=== PATIENT | female | born 1970 | race Caucasian/White ===

== ENCOUNTER 2017-07-03 11:19 | Emergency (ER) | payer OTHER ==
[~2017-07-03] VITALS: Ht 165.1 cm; Wt 118.5 kg
[2017-07-03 11:24] VITALS: TEMP 36.9; Ht 165.1 cm; Wt 118.5 kg
--- NOTE | 2017-07-03 12:58 | DIAGNOSTIC IMAGING REPORT ---
L WRIST MIN 3 VIEWS ROUTINE CLINICAL HISTORY: same trauma. Pain. COMPARISON: None. DISCUSSION: Evidence for arthroplasty of the distal radius and associated carpal bones. Linear screws at the base of the second third and fourth metacarpals with surrounding lucency indicative of loosening. No evidence for well-defined fracture. Moderate generalized soft tissue edema. Old avulsion ulnar styloid IMPRESSION: Considerable postoperative and degenerative change. Evidence for loosening of the patient's carpal bone and distal radial prosthetic. No acute bony abnormality on a posttraumatic basis. The above report was generated using voice recognition software. It may contain grammatical, syntax or spelling errors. Electronically signed by: Ayad Narayanan M.D. 07/03/2017 12:57 PM Dictated Date/Time: 07/03/2017 12:48 PM
--- NOTE | 2017-07-03 12:59 | DIAGNOSTIC IMAGING REPORT ---
L HAND MIN 3 VIEWS ROUTINE CLINICAL HISTORY: fall last pm; L wrist and hand pain trauma. Pain. COMPARISON: None. DISCUSSION: Evidence for arthroplasties involving the distal radius, components of the first and second carpal bone row, as well as screw and/or pin fixation devices involving the bases of the second third and fourth metacarpals. Evidence for loosening surrounding these pins. No well-defined evidence for an acute posttraumatic abnormality. No specific evidence for fracture. There is no evidence for soft tissue swelling. IMPRESSION: Degenerative and postoperative change. No acute bony antibody. The above report was generated using voice recognition software. It may contain grammatical, syntax or spelling errors. Electronically signed by: Ayad Narayanan M.D. 07/03/2017 12:58 PM Dictated Date/Time: 07/03/2017 12:57 PM
[2017-07-03] MEDS ORDERED: HYDR-5688 PO (13:25)
[2017-07-03 13:35] VITALS: BP 158/99; PULSE 87; O2SAT 96
--- NOTE | 2017-07-04 16:17 | EMERGENCY ROOM VISIT NOTE ---
ED Visit Note First contact with patient: 12:04 Chief Complaint: Left wrist pain. History of Present Illness: Ms. Samuel is a 47-year-old white female who ambulates into the ED complaining of left wrist pain. 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 Patient reports last night approximately 10 PM, approximately 12 hours ago, she fell while carrying stuff up the stairs. She reports she landed on her left hand but does not know the position of the hand or the wrist at the time of the fall. Since the fall she has been having severe left wrist pain predominantly over the area of the hyper thenar eminence and extending into the medial wrist. She describes her pain as a combination of sharp and throbbing. She rates her discomfort 6/10. Her pain is nonradiating into the forearm or the rest of the hand. She has not identified any alleviating factors related to the pain. She reports she attempted to use [id number] medications without relief of her discomfort. Associated with her pain she reports she has mild tingling in the fingers but no numbness or weakness. Additionally she reports no shoulder pain, elbow pain, proximal forearm pain. Review of Systems: As noted above in history of present illness. Past Medical History: As previously noted and hypertension, status post cholecystectomy, and tubal ligation. Current Medications: Patient denies. Allergies to Medications: Patient denies. Social History: Patient is currently employed; she feels safe in her home environment; she admits to tobacco use and denies alcohol use. Physical Examination: Vital Signs: Date Time Temp Pulse Resp B/P (MAP) Pulse Ox O2 Delivery O2 Flow Rate FiO2 07/03/17 13:35 87 18 158/99 96 07/03/17 11:24 36.9 81 18 163/105 96 Room Air GENERAL: 47-year-old female in mild distress due to pain, nontoxic-appearing, afebrile and hemodynamically stable. NEUROLOGICAL: Awake, alert and oriented to person, place and time. Answering questions appropriately and following commands. SKIN: Warm, dry and pink. No soft tissue trauma noted. LEFT UPPER EXTREMITY: No gross bony deformity. No tenderness in the shoulder, upper arm, elbow, proximal forearm. Mild tenderness over the distal ulna with mild swelling but no bony deformity or crepitus. Mild tenderness about the wrist once again with mild swelling but no bony deformity or crepitus. No tenderness in the anatomical snuffbox. Moderate tenderness in the hand predominantly in the area of the second through fourth metacarpals. There is also moderate swelling in this area but there is no bony deformity or crepitus. Mild tenderness over the MCP joint of the thumb without bony deformity or crepitus. No tenderness over the other MCP, PIP or DIP joints. No tenderness over the fingers. She has full range of motion in the MCP, PIP and DIP joint. The fingers were warm and pink and capillary refill is brisk. Mild decreased range of motion in the wrist due to pain but good strength. ED Course: Patient is assessed as noted above per Patient's medication list was reviewed. Patient was offered pain medication and refused; she did except and ice pack. Left Hand X-Rays: Were red by myself and read by the radiologist showing degenerative and postoperative changes but no acute bony deformities. Evidence of loosening surrounding her surgical implant. Left Wrist X-Rays: Were read by myself and the radiologist showing incidental verbal postoperative and degenerative changes. Evidence for loosening of the patient's carpal and distal radial prosthetic but no acute bony abnormalities. Patient was placed in a thumb spica splint. Patient was educated about today's findings and instructed on her treatment plan ; she verbalized understanding and agreement with this plan. Clinical Impression: Left wrist pain. Left thumb pain. Status post fall. Disposition: Patient discharged home in stable condition; prior to departure she was reassessed and subjectively reported she is feeling slightly better and rated her discomfort 5/10. Plan: Comfort measures were discussed with the patient including rest, splint use, ice and a sliding pain medication scale of ibuprofen, see acetaminophen and [place]; her name was checked in the state database and no red flags were noted. Patient was given appropriate narcotic precautions. Patient was encouraged to follow-up with [facility] for definitive care and treatment. Patient was encouraged return ED for worsening/uncontrolled pain, uncontrolled swelling, hand/finger weakness/numbness/tingling or any new/concerning symptoms.
== END 2017-07-03 13:33 | disposition home or self-care (01) ==
LOC: C.EDB 11:21 → C.EDD 13:33
DX: M25.532 Pain in left wrist (principal); M25.542 Pain in joints of left hand; I10 Essential (primary) hypertension; F17.200 Nicotine dependence, unspecified, uncomplicated; Z90.49 Acquired absence of other specified parts of digestive tract; Z98.51 Tubal ligation status

== ENCOUNTER 2017-08-22 10:38 | Emergency (ER) | payer OTHER ==
[~2017-08-22] VITALS: Ht 165.1 cm; Wt 119.0 kg
[~2017-08-22 10:38] MED LIST: HYDR-5688 PO
[2017-08-22 10:46] VITALS: TEMP 36.9; Ht 165.1 cm; Wt 119.0 kg
[2017-08-22 11:44] VITALS: O2SAT 96
[2017-08-22 11:48] LABS: BASO % 0.2 %; BASO ABS # 0.02 K/uL (0-0.2); EOS % 1.2 %; HEMATOCRIT 39.4 % (37-47); HEMOGLOBIN 13.4 g/dL (12.0-16.0); IG# 0.02 K/uL (0.00-0.02); LYMPH % 25.4 %; LYMPH ABS # 2.16 K/uL (1.2-3.4); MEAN CELL VOLUME 87.9 fL (80-100); MEAN CORPUSCULAR HEMOGLOBIN 29.9 pg (25-34); MEAN PLATELET VOLUME 9.7 fL (7.4-10.4); MONO % 6.7 %; MONO ABS # 0.57 K/uL (0.11-0.59); NEUT % 66.3 %; NEUT ABS # 5.65 K/uL (1.4-6.5); PLATELET COUNT 330 K/uL (130-400); RED CELL DISTRIBUTION WIDTH SD 48.2 fL (36.4-46.3); WHITE BLOOD COUNT 8.52 K/uL (4.8-10.8)
[2017-08-22 11:57] LABS: ALBUMIN 3.7 gm/dl (3.4-5.0); ALT/SGPT 24 U/L (12-78); AST/SGOT 12 U/L (15-37); BLOOD UREA NITROGEN 12 mg/dl (7-18); CALCIUM 8.9 mg/dl (8.5-10.1); CARBON DIOXIDE 26 mmol/L (21-32); CREATININE 0.79 mg/dl (0.60-1.20); GLUCOSE 110 mg/dl (70-99); POTASSIUM 3.6 mmol/L (3.5-5.1); SODIUM 138 mmol/L (136-145)
[2017-08-22 12:02] LABS: ALKALINE PHOSPHATASE 58 U/L (45-117); CKMB 0.9 ng/ml (0.5-3.6); TOTAL PROTEIN 7.3 gm/dl (6.4-8.2)
[2017-08-22] MEDS ORDERED: NAPR1TAB9 PO (12:17)
--- NOTE | 2017-08-22 12:18 | DIAGNOSTIC IMAGING REPORT ---
CHEST ONE VIEW PORTABLE CLINICAL HISTORY: L leg edema, dyspnea, chest pain pain. Edema. COMPARISON STUDY: No previous studies for comparison. FINDINGS: The bones soft tissues and hemidiaphragms are normal. The cardiomediastinal silhouette is normal. The lungs are clear. The pulmonary vasculature is normal. IMPRESSION: Negative chest. The above report was generated using voice recognition software. It may contain grammatical, syntax or spelling errors. Electronically signed by: Ayad Narayanan M.D. 08/22/2017 12:16 PM Dictated Date/Time: 08/22/2017 12:16 PM
[2017-08-22 12:24] LABS: INR 0.9 (0.9-1.1)
--- NOTE | 2017-08-22 13:05 | EMERGENCY ROOM VISIT NOTE ---
History First contact with patient: 11:31 Chief Complaint: CHEST PAIN Stated Complaint: CHEST PAIN AND FLUID IN LEFT LEG Nursing Triage Summary: shortness of breath, chest pain started this morning. "I noticed my lower legs look bigger than normal to me." History of Present Illness The patient is a 47 year old female who presents to the Emergency Room via private vehicle with complaints of "chest pain and fluid left leg". The patient states that she has had in her mid shortness of breath over the past few days, intermittent emesis of the chest pain better at rest and not with exertion. She states that she has never had this before. She does smoke but denies any long travel, recent surgeries, hormone use. There has been no fever or chills. She denies any medical problems. She notes a strong family history of heart ailments. Review of Systems A complete 10-point Review of Systems was discussed with the patient, with pertinent positives and negatives listed in the History of Present Illness. All remaining Review of Systems questions can be considered negative unless otherwise specified. Past Medical/Surgical History No pertinent Social History Smoking Status: Current Every Day Smoker Current/Historical Medications Scheduled Naproxen (Aleve), 440 MG PO UD Physical Exam Vital Signs Date Time Temp Pulse Resp B/P (MAP) Pulse Ox O2 Delivery O2 Flow Rate FiO2 08/22/17 13:37 54 16 148/82 97 Room Air 08/22/17 12:20 65 18 145/78 96 Room Air 08/22/17 12:02 56 08/22/17 11:45 65 20 157/93 96 Room Air 08/22/17 11:44 96 Room Air 08/22/17 10:46 36.9 64 20 141/84 95 Room Air Physical Exam VITAL SIGNS - Vital signs and nursing notes were reviewed. Stable. GENERAL - 47-year-old female appearing her stated age who is in no acute distress. Communicates well with provider and answers questions appropriately. SKIN - Without rashes. HEAD - NC/AT. EYES - Sclera anicteric. EARS - No deformities of external structures noted on gross examination bilaterally. NOSE - Midline and without cyanosis. No epistaxis or purulent drainage noted. MOUTH/OROPHARYNX - Without perioral cyanosis. NECK - Neck with FROM. No nuchal rigidity. LUNGS - Chest wall symmetric without accessory muscle use, intercostals retractions, or central cyanosis. Normal vesicular breath sounds CTA B/L. No wheezes, rales, or rhonchi appreciated. CARDIAC - RRR with S1/S2. No murmur, rubs, or gallops appreciated. ABDOMEN - Abdominal contour normal without pulsations or visible masses. BS normoactive all four quadrants. No tenderness, palpable masses, hepatosplenomegaly, or ascites noted. Medical Decision & Procedures ER Provider Diagnostic Interpretation: L VENOUS DOPP LOWER EXT UNILAT HISTORY: 47 years-old Female L leg edema, dyspnea, chest pain acute left leg edema COMPARISON: None available TECHNIQUE: Multiple real-time sonographic images of the left lower extremity deep venous structures were obtained assessing grayscale appearance, color and spectral flow FINDINGS: There is normal flow, phasicity, compressibility and augmentation of the left lower extremity deep venous structures. IMPRESSION: No sonographic evidence of deep venous thrombosis. The above report was generated using voice recognition software. It may contain grammatical, syntax or spelling errors. Electronically signed by: Tevin Lackey M.D. 08/22/2017 1:02 PM Dictated Date/Time: 08/22/2017 1:01 PM CHEST ONE VIEW PORTABLE CLINICAL HISTORY: L leg edema, dyspnea, chest pain pain. Edema. COMPARISON STUDY: No previous studies for comparison. FINDINGS: The bones soft tissues and hemidiaphragms are normal. The cardiomediastinal silhouette is normal. The lungs are clear. The pulmonary vasculature is normal. IMPRESSION: Negative chest. The above report was generated using voice recognition software. It may contain grammatical, syntax or spelling errors. Electronically signed by: Ayad Narayanan M.D. 08/22/2017 12:16 PM Dictated Date/Time: 08/22/2017 12:16 PM Laboratory Results 08/22/17 11:03 Red Blood Count 4.48, Mean Corpuscular Volume 87.9, Mean Corpuscular Hemoglobin 29.9, Mean Corpuscular Hemoglobin Concent 34.0, Mean Platelet Volume 9.7, Neutrophils (%) (Auto) 66.3, Lymphocytes (%) (Auto) 25.4, Monocytes (%) (Auto) 6.7, Eosinophils (%) (Auto) 1.2, Basophils (%) (Auto) 0.2, Neutrophils # (Auto) 5.65, Lymphocytes # (Auto) 2.16, Monocytes # (Auto) 0.57, Eosinophils # (Auto) 0.10, Basophils # (Auto) 0.02 08/22/17 11:03 Test 08/22/17 11:03 08/22/17 11:39 White Blood Count 8.52 K/uL (4.8-10.8) Red Blood Count 4.48 M/uL (4.2-5.4) Hemoglobin 13.4 g/dL (12.0-16.0) Hematocrit 39.4 % (37-47) Mean Corpuscular Volume 87.9 fL (80-100) Mean Corpuscular Hemoglobin 29.9 pg (25-34) Mean Corpuscular Hemoglobin Concent 34.0 g/dl (32-36) Platelet Count 330 K/uL (130-400) Mean Platelet Volume 9.7 fL (7.4-10.4) Neutrophils (%) (Auto) 66.3 % Lymphocytes (%) (Auto) 25.4 % Monocytes (%) (Auto) 6.7 % Eosinophils (%) (Auto) 1.2 % Basophils (%) (Auto) 0.2 % Neutrophils # (Auto) 5.65 K/uL (1.4-6.5) Lymphocytes # (Auto) 2.16 K/uL (1.2-3.4) Monocytes # (Auto) 0.57 K/uL (0.11-0.59) Eosinophils # (Auto) 0.10 K/uL (0-0.5) Basophils # (Auto) 0.02 K/uL (0-0.2) RDW Standard Deviation 48.2 fL (36.4-46.3) RDW Coefficient of Variation 15.0 % (11.5-14.5) Immature Granulocyte % (Auto) 0.2 % Immature Granulocyte # (Auto) 0.02 K/uL (0.00-0.02) Prothrombin Time 9.7 SECONDS (9.0-12.0) Prothromb Time International Ratio 0.9 (0.9-1.1) Activated Partial Thromboplast Time 25.0 SECONDS (21.0-31.0) Partial Thromboplastin Ratio 1.0 D-Dimer 400 ug/L FEU (0-500) Anion Gap 8.0 mmol/L (3-11) Est Creatinine Clear Calc Drug Dose 111.2 ml/min Estimated GFR () 101.9 Estimated GFR (Non- 87.9 BUN/Creatinine Ratio 15.6 (10-20) Calcium Level 8.9 mg/dl (8.5-10.1) Magnesium Level 2.0 mg/dl (1.8-2.4) Total Bilirubin 0.5 mg/dl (0.2-1) Aspartate Amino Transf (AST/SGOT) 12 U/L (15-37) Alanine Aminotransferase (ALT/SGPT) 24 U/L (12-78) Alkaline Phosphatase 58 U/L (45-117) Total Creatine Kinase 51 U/L (26-192) Creatine Kinase MB 0.9 ng/ml (0.5-3.6) Creatine Kinase MB Ratio 1.8 (0-3.0) Troponin I < 0.015 ng/ml (0-0.045) Pro-B-Type Natriuretic Peptide 75 pg/ml (0-450) Total Protein 7.3 gm/dl (6.4-8.2) Albumin 3.7 gm/dl (3.4-5.0) Globulin 3.6 gm/dl (2.5-4.0) Albumin/Globulin Ratio 1.0 (0.9-2) Urine Color YELLOW Urine Appearance CLOUDY (CLEAR) Urine pH 8.5 (4.5-7.5) Urine Specific Dania 1.018 (1.000-1.030) Urine Protein NEG (NEG) Urine Glucose (UA) NEG (NEG) Urine Ketones NEG (NEG) Urine Occult Blood NEG (NEG) Urine Nitrite NEG (NEG) Urine Bilirubin NEG (NEG) Urine Urobilinogen NEG (NEG) Urine Leukocyte Esterase TRACE (NEG) Urine WBC (Auto) 1-5 /hpf (0-5) Urine RBC (Auto) 0-4 /hpf (0-4) Urine Hyaline Casts (Auto) 1-5 /lpf (0-5) Urine Epithelial Cells (Auto) >30 /lpf (0-5) Urine Bacteria (Auto) NEG (NEG) Urine Test NEG (NEG) Medical Decision Patient was seen and evaluated as above. She presents to us today with intermittent chest pain that is not with exertion and fluid in her left leg. She also notes her left leg is swollen. She is well on exam. Vital signs are stable. She is not tachycardic and is saturating on room air at 95%. Bedside EKG reveals normal sinus rhythm, there is a nonspecific ST abnormality noted but no evidence of CO on my interpretation. Patient's troponin was negative. Chest x-ray normal. CBC reveals no leukocytosis or anemia. coags are normal. d-dimer 400. metabolic panel reveals no evidence of kidney or liver failure. patient's bnp normal at 75. troponin negative. urine reveals negative test as well as trace leukocytes and epithelial cells. chest x-ray and left lower leg dvt study are negative. i suspect either viral illness, or perhaps venous insufficiency in the left lower extremity. i do not suspect emergent cause of this time but do recommend prompt follow-up with her family doctor or return with worsening. case was discussed with the attending physician. she was educated upon management, educated upon worrisome symptoms in which to return, had questions answered prior to discharge, and was discharged home in good condition. In evaluation treatment this patient the following differential diagnoses were entertained: CO, PE, peritonitis, costs enteritis, DVT, among others. Impression Primary Impression: Chest wall pain Additional Impression: Left leg swelling Departure Information Dispostion Home / Self-Care Condition GOOD Referrals No Doctor, Assigned (PCP) Patient Instructions My [facility] Additional Instructions You have been treated in the Emergency Department your chest Pain and leg swelling. Laboratory results and imaging studies have ruled out any emergent causes for your chest pain which would warrant admission or surgery. For pain control, you can use the following [id number] medicines (if >12 yo): - Regular strength (325mg/tab) Tylenol (acetaminophen) 2 tabs every 4-6 hours as needed. Do not exceed 12 tablets in a 24 hour period. Avoid taking more than 3 grams (3000 mg) of Tylenol per day. This includes any other sources of acetaminophen you may take on a regular basis. - Regular strength (200 mg/tab) Advil (ibuprofen) 1-2 tabs every 4-6 hours as needed. Do not exceed a dose of 3200 mg per day. Drink plenty of water and stay well hydrated. As with any trip to the Emergency Department, you should follow-up with your Primary Care Provider from today's visit. Return to the emergency department if your symptoms persist despite treatment plan outlined above or if the following symptoms occur: increased fevers, chest pain with walking or exertion, chills, worsening nausea/vomiting, blood in your stool or urine. Problem Qualifiers
[2017-08-22 13:37] VITALS: BP 148/82; PULSE 54; O2SAT 97
== END 2017-08-22 14:00 | disposition home or self-care (01) ==
LOC: C.EDB 10:40 → C.EDC 14:00
DX: R07.89 Other chest pain (principal); R60.0 Localized edema; R94.31 Abnormal electrocardiogram [ECG] [EKG]; F17.200 Nicotine dependence, unspecified, uncomplicated

== ENCOUNTER 2018-02-20 09:28 | Emergency (ER) | payer OTHER ==
[~2018-02-20] VITALS: Ht 165.1 cm; Wt 115.3 kg
[~2018-02-20 09:28] MED LIST changes: -HYDR-5688 PO; +NAPR1TAB9 PO
[2018-02-20 09:31] VITALS: TEMP 36.6; Ht 165.1 cm; Wt 115.3 kg
[2018-02-20] MEDS ORDERED: IBUPROFEN 600 MG TAB PO STA (09:56)
--- NOTE | 2018-02-20 10:31 | DIAGNOSTIC IMAGING REPORT ---
LEFT WRIST 4 VIEWS HISTORY: Left Wrist pain COMPARISON: Left wrist 07/03/2017. FINDINGS: There is no fracture or dislocation. Diffuse soft tissue swelling which has progressed. A left wrist arthroplasty is again noted. The proximal carpal row has been partially resected. The hardware appears intact. There is progressive periprosthetic lucency. This is most pronounced at the base of the third metacarpal with the lucency measuring 3.1 mm. There is also 3 mm of periprosthetic lucency at the distal radius. IMPRESSION: 1. No fracture or dislocation within the left wrist. 2. Left wrist arthroplasty. There is progressive periprosthetic lucency consistent with loosening. 3. Diffuse soft tissue swelling. Electronically signed by: Rodney Mauricio M.D. 02/20/2018 10:30 AM Dictated Date/Time: 02/20/2018 10:27 AM
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
[2018-02-20 11:19] VITALS: BP 128/76; PULSE 90; O2SAT 98
== END 2018-02-20 11:20 | disposition home or self-care (01) ==
LOC: C.EDB 09:31
DX: M25.532 Pain in left wrist (principal); W22.8XXA Striking against or struck by other objects, initial encounter; Y92.013 Bedroom of single-family (private) house as the place of occurrence of the external cause

== ENCOUNTER 2020-11-27 18:02 | Inpatient (IN) ==
[2020-11-27] MEDS ORDERED: methylPREDNISolone 125 MG/2 ML VIAL IV STA (20:04)
[2020-11-27] MEDS ORDERED: ALBUT/IPRATROP 3MG/0.5MG NEB 3 ML VIAL NEB ONE (20:04)
[2020-11-27 20:21] LABS: Basophils # (auto) 0.02 K/uL (0-0.2); Basophils % (auto) 0.1 %; Eosinophils # (auto) 0.14 K/uL (0-0.5); Hemoglobin 13.8 g/dL (12.0-16.0); Immature Granulocytes # (auto) 0.04 K/uL (0.00-0.02); Immature Granulocytes % (auto) 0.3 %; Lymphocytes # (auto) 1.43 K/uL (1.2-3.4); Lymphocytes % (auto) 10.3 %; Mean Corpuscular Hemoglobin 29.2 pg (25-34); Mean Corpuscular Hgb Conc 33.7 g/dL (32-36); Mean Corpuscular Volume 86.7 fL (80-100); Mean Platelet Volume 9.8 fL (7.4-10.4); Monocytes # (auto) 1.03 K/uL (0.11-0.59); Monocytes % (auto) 7.4 %; Neutrophils # (auto) 11.21 K/uL (1.4-6.5); Neutrophils % (auto) 80.9 %; Platelet Count 330 K/uL (130-400); RDW Coefficient of Variation 14.7 % (11.5-14.5); RDW Standard Deviation 46.6 fL (36.4-46.3); Red Blood Count 4.73 M/uL (4.2-5.4); White Blood Count 13.87 K/uL (4.8-10.8)
[2020-11-27 20:43] LABS: Base Excess VBG 7.8 mEq/L; Oxygen Saturation VBG 71.9 %; pH VBG 7.51 (7.36-7.41)
[2020-11-27 20:45] LABS: Alanine Aminotransferase 22 U/L (12-78); Albumin Level 3.7 gm/dl (3.4-5.0); Aspartate Aminotransferase 9 U/L (15-37); BUN Creatinine Ratio 10.3 (10-20); Blood Urea Nitrogen 6 mg/dl (7-18); Calcium 8.8 mg/dl (8.5-10.1); Carbon Dioxide 25 mmol/L (21-32); Chloride 110 mmol/L (98-107); Creatinine Clr Calc Pharmacy 137.8 ml/min; Est GFR (African American) 122.1 ml/min; Est GFR (Non-African American) 105.4 ml/min; Glucose 98 mg/dl (70-99); Magnesium 2.5 mg/dl (1.8-2.4); Potassium 3.9 mmol/L (3.5-5.1); Sodium 141 mmol/L (136-145)
[2020-11-27 20:49] LABS: INR 0.9 (0.9-1.1); Partial Thromboplastin Ratio 0.9; Partial Thromboplastin Time 22.5 Seconds (21.0-31.0); Prothrombin Time 9.6 Seconds (9.0-12.0)
[2020-11-27 20:50] LABS: Albumin Globulin Ratio 1.1 (0.9-2); Alkaline Phosphatase 60 U/L (45-117); Bilirubin,Total 0.6 mg/dl (0.2-1); Globulin 3.5 gm/dl (2.5-4.0); NT Pro B Type Natriuretic Pept 319 pg/ml (0-900); Total Protein 7.2 gm/dl (6.4-8.2); Troponin I < 0.015 ng/ml (0-0.045)
[2020-11-27] MEDS ORDERED: ALBUTEROL 0.083% NEBU SOLN 3 ML VIAL NEB STA (21:37)
[2020-11-27] MEDS ORDERED: ALBUT/IPRATROP 3MG/0.5MG NEB 3 ML VIAL NEB STA (21:37)
[2020-11-27] MEDS ORDERED: AZITHROMYCIN 250 MG TAB PO ONE (21:37)
--- NOTE | 2020-11-27 21:44 | Emergency Department Note ---
History of Present Illness General Chief Complaint: Shortness of Breath/Dyspnea Stated Complaint: SHORTNESS OF BREATH, SWOLLEN LEG Time Seen by Provider: 11/27/20 19:57 History of Present Illness Provider Complaint: shortness of breath Onset (ago): day(s) (2) Severity: severe Maximum Pain Intensity: 0 Current Pain Intensity: 0 Exacerbated By: + exertion, + coughing, + talking and + allergies Context: + medication noncompliance (Albuterol inhaler is ) Known history of: COPD Associated symptoms: + wheezing; no chest pain, no pain with inspiration, no cough, no orthopnea, no palpitations, no hemoptysis, no diaphoresis, no syncope, no abdominal pain, no rash and no chest congestion Home Medications Medication Instructions Recorded Confirmed Type albuterol sulfate [ProAir HFA] 2 puff INHALATION Q6H PRN 08/07/18 11/27/20 Histo ry Allergies Allergy/AdvReac Type Severity Reaction Status Date / Time No Known Allergies Allergy Verified 11/27/20 19:52 Past Med/Surg History Medical History COPD (chronic obstructive pulmonary disease) Murmur Surgical History History of cholecystectomy Social History Smoking Status: Current every day smoker Tobacco Type: Cigarettes Hx Substance Use: Yes Preferred Language: Czech Feels Safe at Home: Yes Review of Systems A total of 10 systems reviewed and were otherwise negative Physical Exam Vital Signs: Vital Signs - 24 hr 11/27/20 18:20 11/27/20 20:03 11/27/20 20:28 Temperature 36.6 C 37.0 C Temperature Source Temporal Artery Sc an Oral Pulse Rate 80 Pulse Rate [Right Finger] 71 Pulse Rate from Sp O2 Sensor Respiratory Rate 22 28 H 18 Respiratory Effort / Characteristics Labored Non-Labored Sponta neous Blood Pressure 186/77 H Blood Pressure Nayana n 113 Pulse Oximetry 95 93 93 Oxygen Delivery Me thod Room Air Room Air Oxygen Flow Rate 93 Sepsis Recent Feve r Within 48 Hours No Sepsis New/Unexpla ined Change in Men marah Status No Sepsis Action Take n by Nursing No Action Required 11/27/20 21:01 Temperature Temperature Source Pulse Rate Pulse Rate [Right Finger] Pulse Rate from Sp O2 Sensor 81 Respiratory Rate Respiratory Effort / Characteristics Blood Pressure 145/83 H Blood Pressure Nayana n 103 Pulse Oximetry 100 Oxygen Delivery Me thod Oxygen Flow Rate Sepsis Recent Feve r Within 48 Hours Sepsis New/Unexpla ined Change in Men marah Status Sepsis Action Take n by Nursing Physical Exam: Physical Exam HENT: Exam performed. -Head: Normocephalic and atraumatic. -Right Ear: External ear normal. No mastoid tenderness. -Left Ear: External ear normal. No mastoid tenderness. -Mouth/Throat: The oropharynx is clear and moist. No trismus in the jaw. No dental abscesses or uvula swelling. No oropharyngeal exudate or tonsillar abscesses. EYES: Conjunctivae and EOM are normal. Pupils are equal, round, and reactive to light. Right eye exhibits no discharge. Left eye exhibits no discharge. No scleral icterus. NECK: Normal range of motion. Neck supple. No JVD present. No spinous process tenderness present. No carotid bruit present. No rigidity. No tracheal deviation and normal range of motion present. No Brudzinski's sign and no Kernig's sign noted. CV: Normal rate, regular rhythm, normal heart sounds and intact distal pulses. There is no peripheral edema. Palpable radial pulses bue. PULM/CHEST: Tachypneic. Diffuse bilateral expiratory wheezes. ABD: The abdomen is soft and obese. Bowel sounds are normal. She has no distension. No mass is present. There is no tenderness. There is no rebound, no guarding, no Fernandez's sign and no tenderness at McBurney's point. Rovsig negative MUSC/SKEL: Normal range of motion. There is no peripheral edema, tenderness or deformity. LYMPH: No cervical adenopathy. NEURO: She is alert and oriented to person, place, and time. She has normal strength. No cranial nerve deficit or sensory deficit. Coordination and gait normal. GCS eye subscore is 4. GCS verbal subscore is 5. GCS motor subscore is 6. Cerebellar tests wnl. SKIN: Skin is warm and dry. She is not diaphoretic. PSYCH: She has a normal mood and affect. Behavior is normal. Judgment and thought content normal. Course Course 1956: The patient was evaluated in room C9. A complete history and physical exam was performed Cardiac monitoring: An order was placed for continuous cardiac monitoring. The monitor shows a rate of 80 with sinus rhythm Patient will be given hour-long DuoNeb treatment and steroids. Will reassess then. Patient is not vaccinated gets COVID-19 we will check Covid swab. 2141: Vital signs stable. Labs show leukocytosis of 13.8, thought to be reactive. Chest x-ray negative. proBNP within normal limits. Status post 1 hour DuoNeb treatment the patient states she feels better. Patient went to the restroom and on returning to the [place] the patient states she felt extremely short of breath with small amount of walking. On repeat lung station after she went to the bathroom the patient is still having expiratory wheezes that are diffuse. Patient states she is still an active smoker. Smoking cessation discussed with the patient. Patient states she does not have a PCP in the area. Patient will be admitted to the [facility] service for COPD exacerbation. Patient will be given additional breathing treatments and started on azithromycin for COPD exacerbation. Administered Medications Discontinued Medications Albuterol (Albut/Ipratrop 3mg/0.5mg Neb 3 Ml Vial) 12 ml NEB ONE ONE Stop: 11/27/20 20:05 Last Admin: 11/27/20 20:28 Dose: 12 ml Documented by: [id number] Methylprednisolone (Methylprednisolone 125 Mg/2 Ml Vial) 125 mg IV NOW STA Stop: 11/27/20 20:05 Last Admin: 11/27/20 20:19 Dose: 125 mg Documented by: [id number] Medical Decision Making Laboratory Data Result diagrams: 11/27/20 20:00 11/27/20 20:00 Lab Results 11/27/20 11/27/20 11/27/20 Range/Units 20:00 20:00 20:17 WBC 13.87 H (4.8-10.8) K/uL RBC 4.73 (4.2-5.4) M/uL Hgb 13.8 (12.0-16.0) g/dL Hct 41.0 (37-47) % MCV 86.7 (80-100) fL MCH 29.2 (25-34) pg MCHC 33.7 (32-36) g/dL RDW Std Deviation 46.6 H (36.4-46.3) fL RDW Coeff of James 14.7 H (11.5-14.5) % Plt Count 330 (130-400) K/uL MPV 9.8 (7.4-10.4) fL Immature Gran % (Auto) 0.3 % Neut % (Auto) 80.9 % Lymph % (Auto) 10.3 % [place] % (Auto) 7.4 % Eos % (Auto) 1.0 % Baso % (Auto) 0.1 % Neut # (Auto) 11.21 H (1.4-6.5) K/uL Lymph # (Auto) 1.43 (1.2-3.4) K/uL [place] # (Auto) 1.03 H (0.11-0.59) K/uL Eos # (Auto) 0.14 (0-0.5) K/uL Baso # (Auto) 0.02 (0-0.2) K/uL Immature Gran # (Auto) 0.04 H (0.00-0.02) K/uL PT (9.0-12.0) Seconds INR (0.9-1.1) APTT (21.0-31.0) Seconds PTT Ratio VBG pH (7.36-7.41) VBG pCO2 (38-50) mmHg VBG pO2 mmHg VBG HCO3 mmol/L VBG O2 Saturation % VBG Base Excess mEq/L Barometric Pressure mm/Hg Sodium 141 (136-145) mmol/L Potassium 3.9 (3.5-5.1) mmol/L Chloride 110 H (98-107) mmol/L Carbon Dioxide 25 (21-32) mmol/L Anion Gap 6.0 (3-11) BUN 6 L (7-18) mg/dl Creatinine 0.59 L (0.6-1.2) mg/dl Est Cr Clr Drug Dosing 137.8 ml/min Est GFR ( Amer) 122.1 ml/min Est GFR (Non-Af Amer) 105.4 ml/min BUN/Creatinine Ratio 10.3 (10-20) Glucose 98 (70-99) mg/dl Calcium 8.8 (8.5-10.1) mg/dl Magnesium 2.5 H (1.8-2.4) mg/dl Total Bilirubin 0.6 (0.2-1) mg/dl AST 9 L (15-37) U/L ALT 22 (12-78) U/L Alkaline Phosphatase 60 (45-117) U/L Troponin I < 0.015 (0-0.045) ng/ml NT-Pro-B Natriuret Pep 319 (0-900) pg/ml Total Protein 7.2 (6.4-8.2) gm/dl Albumin 3.7 (3.4-5.0) gm/dl Globulin 3.5 (2.5-4.0) gm/dl Albumin/Globulin Ratio 1.1 (0.9-2) COVID-19 Eval Order Covid19 at [facility] SARS-CoV-2 (PCR) (Negative) 11/27/20 11/27/20 11/27/20 Range/Units 20:17 20:22 20:22 WBC (4.8-10.8) K/uL RBC (4.2-5.4) M/uL Hgb (12.0-16.0) g/dL Hct (37-47) % MCV (80-100) fL MCH (25-34) pg MCHC (32-36) g/dL RDW Std Deviation (36.4-46.3) fL RDW Coeff of James (11.5-14.5) % Plt Count (130-400) K/uL MPV (7.4-10.4) fL Immature Gran % (Auto) % Neut % (Auto) % Lymph % (Auto) % [place] % (Auto) % Eos % (Auto) % Baso % (Auto) % Neut # (Auto) (1.4-6.5) K/uL Lymph # (Auto) (1.2-3.4) K/uL [place] # (Auto) (0.11-0.59) K/uL Eos # (Auto) (0-0.5) K/uL Baso # (Auto) (0-0.2) K/uL Immature Gran # (Auto) (0.00-0.02) K/uL PT 9.6 (9.0-12.0) Seconds INR 0.9 (0.9-1.1) APTT 22.5 (21.0-31.0) Seconds PTT Ratio 0.9 VBG pH 7.51 H (7.36-7.41) VBG pCO2 40 (38-50) mmHg VBG pO2 37 mmHg VBG HCO3 31 mmol/L VBG O2 Saturation 71.9 % VBG Base Excess 7.8 mEq/L Barometric Pressure 738.0 mm/Hg Sodium (136-145) mmol/L Potassium (3.5-5.1) mmol/L Chloride (98-107) mmol/L Carbon Dioxide (21-32) mmol/L Anion Gap (3-11) BUN (7-18) mg/dl Creatinine (0.6-1.2) mg/dl Est Cr Clr Drug Dosing ml/min Est GFR ( Amer) ml/min Est GFR (Non-Af Amer) ml/min BUN/Creatinine Ratio (10-20) Glucose (70-99) mg/dl Calcium (8.5-10.1) mg/dl Magnesium (1.8-2.4) mg/dl Total Bilirubin (0.2-1) mg/dl AST (15-37) U/L ALT (12-78) U/L Alkaline Phosphatase (45-117) U/L Troponin I (0-0.045) ng/ml NT-Pro-B Natriuret Pep (0-900) pg/ml Total Protein (6.4-8.2) gm/dl Albumin (3.4-5.0) gm/dl Globulin (2.5-4.0) gm/dl Albumin/Globulin Ratio (0.9-2) COVID-19 Eval Order SARS-CoV-2 (PCR) NEGATIVE (Negative) Imaging Data My Impression: Chest x-ray negative. Airway clear. No pneumothorax. No consolidation. No cardiomegaly or cephalization.. No free air under the diaphragm. No fractures of the skeletal structures. ECG Data Interpretation: Sinus rhythm with rate of 62. GA QRS and QTc intervals within normal limits. No ST elevation or ST depression. MDM Narrative 195: The patient was evaluated in room C9. A complete history and physical exam was performed Cardiac monitoring: An order was placed for continuous cardiac monitoring. The monitor shows a rate of 80 with sinus rhythm Patient will be given hour-long DuoNeb treatment and steroids. Will reassess then. Patient is not vaccinated gets COVID-19 we will check Covid swab. 2140: Vital signs stable. Labs show leukocytosis of 13.8, thought to be reac tive. Chest x-ray negative. proBNP within normal limits. Status post 1 hour DuoNeb treatment the patient states she feels better. Patient went to the restroom and on returning to the [place] the patient states she felt extremely short of breath with small amount of walking. On repeat lung station after she went to the bathroom the patient is still having expiratory wheezes that are diffuse. Patient states she is still an active smoker. Smoking cessation discussed with the patient. Patient states she does not have a PCP in the area. Patient will be admitted to the [facility] service for COPD exacerbation. Patient will be given additional breathing treatments and started on azithromycin for COPD exacerbation. Impression & Plan Acute exacerbation of chronic obstructive airways disease Discharge Plan Visit Data Chief Complaint: Shortness of Breath/Dyspnea Stated Complaint: SHORTNESS OF BREATH, SWOLLEN LEG ED Provider: Osman Flores Discharge Problem: Acute exacerbation of chronic obstructive airways disease Patient Disposition: Being Evaluated by Hospitalist Forms Stand Alone Forms: My [facility] Prescriptions Prescriptions: No Action albuterol sulfate [ProAir HFA] 90 mcg/actuation Hfa Aerosol Inhaler 2 puff INHALATION Q6H PRN (Reason: Shortness Of Breath Or Wheezing) RF: 0 Referrals Referrals: PCP,NO [Primary Care Provider] -
--- NOTE | 2020-11-27 23:22 | History & Physical Report ---
Date of Service November 27, 2020 Assessment & Plan (1) Acute exacerbation of chronic obstructive airways disease: Admit to medical telemetry Methylprednisolone 60 mg IV every 8 hours Duonebs every 4 hours while awake and every 2 hours when necessary. Guaifenesin extended release 600 mg p.o. twice daily Nasal cannula oxygen, titrate to keep pulse ox around 94% Azithromycin 500 mg IV daily Acetaminophen 650 mg p.o. every 6 hours as needed mild pain or fever Enoxaparin 40 mg subcu every morning Pneumovax 23 given Present on Admission?: Yes (2) Tobacco use disorder: Cessation counseling Present on Admission?: Yes History of Present Illness Chief Complaint: The patient presents to the emergency department with acute onset of severe shortness of breath and dyspnea on exertion Primary Care Provider: NO PCP The patient is a 50-year-old female with a past medical history including COPD, tobacco use disorder who presents to the emergency department with severe shortness of breath and dyspnea on exertion. She reports that she had run out of her inhalers, but has continued to smoke tobacco. She was initially seen at a local acute care center, who then referred her to the emergency department for assessment. The patient was treated with duo nebs x2, Solu-Medrol 125 mg IV and azithromycin 500 mg orally by the ED, and then referred for evaluation for admission. Allergies Allergy/AdvReac Type Severity Reaction Status Date / Time No Known Allergies Allergy Verified 11/27/20 19:52 Home Medications Medication Instructions Recorded Confirmed Type albuterol sulfate [ProAir HFA] 2 puff INHALATION Q6H PRN 08/07/18 11/27/20 History Past Med/Surg History Medical History COPD (chronic obstructive pulmonary disease) Murmur Surgical History History of cholecystectomy Social History Smoking Status: Current every day smoker Tobacco Type: Cigarettes Do You Dip or Chew Tobacco: No; Hx Substance Use: Yes Last Used Substance: Unknown Preferred Language: Czech Communication Ability: Effective Supervisor [employer] Required: No Beliefs That Will Affect Care: None Current Living Situation: Family Other Information That Helps Us Care for You: No Feels Safe at Home: Yes Safety Concerns: Feels Safe At This Time Assistive Devices: Denture - Upper and Glasses Review of Systems Review of Systems: The patient denies chest pain, palpitations, lower extremity swelling, sore throat, fevers, chills, sweats, nausea, vomiting, diarrhea , constipation, abdominal pain, pelvic pain, blood in urine or stool, dysuria, urinary frequency or urgency, lightheadedness, dizziness, headache, memory loss, loss of consciousness, rash, abnormal bruising or bleeding, imbalance, focal or generalized weakness, numbness or tingling in arms or legs, generalized arthralgias or myalgias, back or neck pain, or night sweats. The review of systems is otherwise negative other than for that already noted above, and at least 10 systems have been reviewed. Physical Exam Physical Exam: The patient is awake, alert and oriented 3, well developed and well nourished, normocephalic and atraumatic, lying in bed and in mild acute distress due to shortness of breath HEENT--PERRL, EOMI, mucous membranes and oropharynx normal Neck--supple. No JVD. No bruits. Thyroid normal, trachea midline, no adenopathy. Heart--normal S1 and S2. No murmurs, rubs or gallops. Lungs--decreased breath sounds throughout, with wheezes bilaterally. Mild respiratory distress, no accessory muscle use. Abdomen--normal bowel sounds and soft. Nontender. Nondistended, no hernias or masses, no organomegaly. Extremities--no cyanosis or clubbing. No edema. Dermatologic--normal skin turgor, normal color, no abnormal lymph nodes, no rash. Neurologic--cranial nerves II through XII grossly intact. Rheumatologic--normal range of motion. Psychiatric--normal affect. Results & Data Results & Data ([facility]) Vital Signs (Past 12 Hours) Vital Signs Temp Pulse Pulse Resp BP Pulse Ox 11/27/20 23:00 90 11/27/20 22:30 96 11/27/20 22:19 98 H 24 93 11/27/20 22:00 100 H 17 136/97 11/27/20 21:45 101 H 29 H 149/90 H 11/27/20 21:30 92 H 29 H 133/107 H 93 11/27/20 21:15 133/84 98 11/27/20 21:03 99 11/27/20 21:01 145/83 H 100 11/27/20 20:28 71 18 93 11/27/20 20:03 98.6 F 28 H 93 11/27/20 18:20 97.9 F 80 22 186/77 H 95 Laboratory Results Laboratory Results WBC 13.87 K/uL (4.8-10.8) H 11/27/20 20:00 RBC 4.73 M/uL (4.2-5.4) 11/27/20 20:00 Hgb 13.8 g/dL (12.0-16.0) 11/27/20 20:00 Hct 41.0 % (37-47) 11/27/20 20:00 MCV 86.7 fL (80-100) 11/27/20 20:00 MCH 29.2 pg (25-34) 11/27/20 20:00 MCHC 33.7 g/dL (32-36) 11/27/20 20:00 RDW Std Deviation 46.6 fL (36.4-46.3) H 11/27/20 20:00 RDW Coeff of James 14.7 % (11.5-14.5) H 11/27/20 20:00 Plt Count 330 K/uL (130-400) 11/27/20 20:00 MPV 9.8 fL (7.4-10.4) 11/27/20 20:00 Immature Gran % (Auto) 0.3 % 11/27/20 20:00 Neut % (Auto) 80.9 % 11/27/20 20:00 Lymph % (Auto) 10.3 % 11/27/20 20:00 [place] % (Auto) 7.4 % 11/27/20 20:00 Eos % (Auto) 1.0 % 11/27/20 20:00 Baso % (Auto) 0.1 % 11/27/20 20:00 Neut # (Auto) 11.21 K/uL (1.4-6.5) H 11/27/20 20:00 Lymph # (Auto) 1.43 K/uL (1.2-3.4) 11/27/20 20:00 [place] # (Auto) 1.03 K/uL (0.11-0.59) H 11/27/20 20:00 Eos # (Auto) 0.14 K/uL (0-0.5) 11/27/20 20:00 Baso # (Auto) 0.02 K/uL (0-0.2) 11/27/20 20:00 Immature Gran # (Auto) 0.04 K/uL (0.00-0.02) H 11/27/20 20:00 PT 9.6 Seconds (9.0-12.0) 11/27/20: INR 0.9 (0.9-1.1) 11/27/20:22 APTT 22.5 Seconds (21.0-31.0) 11/27/20 20: PTT Ratio 0.9 11/27/20:22 VBG pH 7.51 (7.36-7.41) H 11/27/20: VBG pCO2 40 mmHg (38-50) 11/27/20: VBG pO2 37 mmHg 11/27/20: VBG HCO3 31 mmol/L 11/27/20: VBG O2 Saturation 71.9 % 11/27/20 20:22 VBG Base Excess 7.8 mEq/L 11/27/20 20:22 Barometric Pressure 738.0 mm/Hg 11/27/20 20:22 Sodium 141 mmol/L (136-145) 11/27/20 20:00 Potassium 3.9 mmol/L (3.5-5.1) 11/27/20 20:00 Chloride 110 mmol/L (98-107) H 11/27/20 20:00 Carbon Dioxide 25 mmol/L (21-32) 11/27/20 20:00 Anion Gap 6.0 (3-11) 11/27/20 20:00 BUN 6 mg/dl (7-18) L 11/27/20 20:00 Creatinine 0.59 mg/dl (0.6-1.2) L 11/27/20 20:00 Est Cr Clr Drug Dosing 137.8 ml/min 11/27/20 20:00 Est GFR ( Amer) 122.1 ml/min 11/27/20 20:00 Est GFR (Non-Af Amer) 105.4 ml/min 11/27/20 20:00 BUN/Creatinine Ratio 10.3 (10-20) 11/27/20 20:00 Glucose 98 mg/dl (70-99) 11/27/20 20:00 Calcium 8.8 mg/dl (8.5-10.1) 11/27/20 20:00 Magnesium 2.5 mg/dl (1.8-2.4) H 11/27/20 20:00 Total Bilirubin 0.6 mg/dl (0.2-1) 11/27/20 20:00 AST 9 U/L (15-37) L 11/27/20 20:00 ALT 22 U/L (12-78) 11/27/20 20:00 Alkaline Phosphatase 60 U/L (45-117) 11/27/20 20:00 Troponin I < 0.015 ng/ml (0-0.045) 11/27/20 20:00 NT-Pro-B Natriuret Pep 319 pg/ml (0-900) 11/27/20 20:00 Total Protein 7.2 gm/dl (6.4-8.2) 11/27/20 20:00 Albumin 3.7 gm/dl (3.4-5.0) 11/27/20 20:00 Globulin 3.5 gm/dl (2.5-4.0) 11/27/20 20:00 Albumin/Globulin Ratio 1.1 (0.9-2) 11/27/20 20:00 COVID-19 Eval Order Covid19 at [facility] 11/27/20 20:17 SARS-CoV-2 (PCR) NEGATIVE (Negative) 11/27/20 20:17 Code Status & VTE Plan Code Status Full code VTE Prophylaxis Plan VTE Prophylaxis will be ordered: Yes PG Care Time/CCT Total # of Minutes Spent Total Time Spent with Patient: Total time spent is greater than 50% in coordination of care (as documented) at patient's floor/unit and/or counseling patient: Coding Level of Care Code 19048 Initial Inpt Care Lvl 2 Diagnoses Acute exacerbation of chronic obstructive airways disease J44.1 Tobacco use disorder F17.200
[2020-11-28] MEDS ORDERED: ONDANSETRON INJ 2 MG/ML 2 ML VIAL IV PRN (00:45)
[2020-11-28] MEDS ORDERED: MAGNESIUM HYDROXIDE SUSP 30 ML UDC PO PRN (00:45)
[2020-11-28] MEDS ORDERED: ALUMINUM/MAGNESIUM SUSP 30 ML UDC PO PRN (00:45)
[2020-11-28] MEDS ORDERED: ACETAMINOPHEN 325 MG TAB PO PRN (00:45)
[2020-11-28] MEDS ORDERED: PNEUMOCOCCAL POLYSACCHARIDES 25 MCG/0.5 ML VIAL/SYR IM ONE (01:11)
[2020-11-28] MEDS ORDERED: ALBUT/IPRATROP 3MG/0.5MG NEB 3 ML VIAL ONE (03:19)
[2020-11-28] MEDS: ALBUT/IPRATROP 3MG/0.5MG NEB 3 ML VIAL NEB SCH ×5 (03:21→19:34)
[2020-11-28] MEDS ORDERED: hydrOXYzine HCl 25 MG TAB PO STA (03:43)
[2020-11-28] MEDS: methylPREDNISolone 60 MG in SYRINGE 0 ML IV SCH ×3 (03:51→20:09)
[2020-11-28 06:51] LABS: Basophils # (auto) 0.01 K/uL (0-0.2); Basophils % (auto) 0.1 %; Hematocrit (blood only) 38.3 % (37-47); Hemoglobin 12.9 g/dL (12.0-16.0); Immature Granulocytes # (auto) 0.02 K/uL (0.00-0.02); Immature Granulocytes % (auto) 0.2 %; Lymphocytes # (auto) 0.49 K/uL (1.2-3.4); Lymphocytes % (auto) 4.8 %; Mean Corpuscular Hemoglobin 29.5 pg (25-34); Mean Corpuscular Hgb Conc 33.7 g/dL (32-36); Mean Corpuscular Volume 87.6 fL (80-100); Mean Platelet Volume 9.9 fL (7.4-10.4); Monocytes # (auto) 0.07 K/uL (0.11-0.59); Monocytes % (auto) 0.7 %; Neutrophils # (auto) 9.58 K/uL (1.4-6.5); Neutrophils % (auto) 94.2 %; Platelet Count 338 K/uL (130-400); RDW Coefficient of Variation 14.9 % (11.5-14.5); RDW Standard Deviation 48.3 fL (36.4-46.3); Red Blood Count 4.37 M/uL (4.2-5.4); White Blood Count 10.17 K/uL (4.8-10.8)
--- NOTE | 2020-11-28 06:55 | Ultrasound Report ---
LEFT LOWER EXTREMITY VENOUS DOPPLER HISTORY: Left leg swelling. COMPARISON STUDY: None. FINDINGS: There is normal compressibility, flow, and augmentation within the left lower extremity mayank p venous system. IMPRESSION: No DVT within the left lower extremity. ACT 112: Negative or not required by law. Electronically signed by: Rodney Mauricio M.D. 11/28/2020 6:54 AM
--- NOTE | 2020-11-28 06:59 | XRay Report ---
XR chest 1V portable CLINICAL HISTORY: SOB COMPARISON STUDY: January 25, 2019 FINDINGS: No pneumothorax. No pleural effusion. No large infiltrates or consolidative lesions are seen. Prominence of pulmonary interstitium is again seen predominantly within bilateral lower lungs. Cardiomediastinal silhouette is within normal limits in size. No significant pulmonary vascular congestion.. Aorta is calcified. Osseous structures: Mild degenerative changes of the spine. Soft tissue calcifications are again see n projecting to the medial aspect of the right proximal humerus. IMPRESSION: 1. No large infiltrates or consolidative lesions. 2. Aortic calcification, prominent for patient's age group, stable since prior study in 2019. ACT 112: Negative or not required by law. The above report was generated using voice recognition software. It may contain grammatical, syntax o r spelling errors. Electronically signed by: Yesenia Nixon DO 11/28/2020 6:57 AM
[2020-11-28 07:01] LABS: Partial Thromboplastin Time 25.2 Seconds (21.0-31.0); Prothrombin Time 9.8 Seconds (9.0-12.0)
[2020-11-28 07:24] LABS: Albumin Level 3.4 gm/dl (3.4-5.0); BUN Creatinine Ratio 12.3 (10-20); Calcium 8.7 mg/dl (8.5-10.1); Creatinine Clr Calc Pharmacy 155.9 ml/min; Est GFR (African American) 125.7 ml/min; Est GFR (Non-African American) 108.5 ml/min; Magnesium 2.2 mg/dl (1.8-2.4); Potassium 3.9 mmol/L (3.5-5.1)
[2020-11-28 07:26] LABS: Bilirubin,Total 0.5 mg/dl (0.2-1); Globulin 3.5 gm/dl (2.5-4.0); Total Protein 6.9 gm/dl (6.4-8.2)
[2020-11-28] MEDS: guaiFENesin 600 MG TABCR PO SCH ×2 (08:39→20:09)
[2020-11-28] MEDS: ENOXAPARIN INJ 40 MG/0.4 ML SYR SQ SCH (08:40)
[2020-11-28] MEDS ORDERED: AZITHROMYCIN 500 MG in DEXTROSE 5% 250 ML IV SCH (09:00)
--- NOTE | 2020-11-28 13:17 | Electrocardiogram Report ---
Test Reason : Blood Pressure : / mmHG Vent. Rate : 075 BPM Atrial Rate : 075 BPM P-R Int : 162 ms QRS Dur : 092 ms QT Int : 402 ms P-R-T Axes : 046 057 067 degrees QTc Int : 448 ms Normal sinus rhythm Nonspecific ST and T wave abnormality Abnormal ECG When compared with ECG of 25-JAN-2019 10:12, No significant change was found Confirmed by Rafita Boyd ([id number]) on 11/28/2020 1:17:21 PM Referred By: REFERRED SELF Confirmed By:Rafita Boyd
--- NOTE | 2020-11-28 14:24 | Hospitalist Progress Note ---
Date of Service November 28, 2020 Assessment & Plan (1) Acute exacerbation of chronic obstructive airways disease: continue Methylprednisolone 60 mg IV every 8 hours change to Prednisone 50mg qAM tomorrow Duonebs every 4 hours while awake and every 2 hours when necessary. Guaifenesin extended release 600 mg p.o. twice daily Nasal cannula oxygen, titrate to keep pulse ox around 94% Azithromycin 500 mg IV daily x 5 days, can change to PO on discharge Acetaminophen 650 mg p.o. every 6 hours as needed mild pain or fever Enoxaparin 40 mg subcu every morning Pneumovax 23 given (2) Tobacco use disorder: Cessation counseling Nicotine patch PRN (3) Lymphedema: bilaterally in legs, more on left leg US NEGATIVE for DVT in left leg Admission and Anticipated Discharge Date Admission Date: November 27, 2020 Subjective patient says she feels better, less dyspnea, less coughing, no fever appetite is stable, no GI symptoms she asked about left leg US, told her there were no signs of DVT discussed that CXR without pneumonia discussed that she might be ready for discharge tomorrow, she agrees reviewed chart and reviews labs Review of Systems Review of Systems: All systems reviewed & are unremarkable except as noted in Subjective Constitutional: no fever, no fatigue and no weakness Respiratory: + cough, + dyspnea and + dyspnea on exertion; no sputum production Cardiovascular: no chest pain, no palpitations, no syncope and no edema Gastrointestinal: no abdominal pain, no nausea, no vomiting, no constipation and no diarrhea/loose stools Physical Exam Constitutional: WD/WN, vitals as above + obese; no acute distress Neck: trachea midline, no thyromegaly Respiratory: normal respiratory effort and + cough; no respiratory distress and no labored breathing Auscultation: + wheezes (expiratory bilaterally); no crackles, no rales and no rhonchi Cardiovascular: RRR, no murmur, no edema Gastrointestinal (Abdomen): normal bowel sounds, soft, nontender, no hepatosplenomegaly Musculoskeletal: no cyanosis or clubbing, extremities motor strength 5/5 Skin: no rashes, warm and dry Neurologic: patellar DTR's 2+ bilat, sensation intact and PERRL, EOMI, accommodation nl, no face palsy, no dysarthria Psychiatric: A+Ox3, euthymic affect Lymphatic: + lymphedema (bilaterally, more on left side) Results & Data Results & Data ([facility]) Vital Signs (Past 12 Hours) Vital Signs Temp Pulse Pulse Resp BP Pulse Ox 11/28/20 11:19 86 20 93 11/28/20 11:12 37.1 C 70 18 147/78 H 92 11/28/20 07:51 88 22 93 11/28/20 07:42 66 11/28/20 07:06 36.9 C 79 18 127/72 91 11/28/20 03:29 36.5 C 90 22 144/78 H 91 11/28/20 03:22 85 26 H 94 Laboratory Results Laboratory Results - last 24 hr 11/27/20 11/27/20 11/27/20 20:00 20:00 20:17 WBC 13.87 H RBC 4.73 Hgb 13.8 Hct 41.0 MCV 86.7 MCH 29.2 MCHC 33.7 RDW Std Deviation 46.6 H RDW Coeff of James 14.7 H Plt Count 330 MPV 9.8 Immature Gran % (Auto) 0.3 Neut % (Auto) 80.9 Lymph % (Auto) 10.3 [place] % (Auto) 7.4 Eos % (Auto) 1.0 Baso % (Auto) 0.1 Neut # (Auto) 11.21 H Lymph # (Auto) 1.43 [place] # (Auto) 1.03 H Eos # (Auto) 0.14 Baso # (Auto) 0.02 Immature Gran # (Auto) 0.04 H PT INR APTT PTT Ratio VBG pH VBG pCO2 VBG pO2 VBG HCO3 VBG O2 Saturation VBG Base Excess Barometric Pressure Sodium 141 Potassium 3.9 Chloride 110 H Carbon Dioxide 25 Anion Gap 6.0 BUN 6 L Creatinine 0.59 L Est Cr Clr Drug Dosing 137.8 Est GFR ( Amer) 122.1 Est GFR (Non-Af Amer) 105.4 BUN/Creatinine Ratio 10.3 Glucose 98 Calcium 8.8 Magnesium 2.5 H Total Bilirubin 0.6 AST 9 L ALT 22 Alkaline Phosphatase 60 Troponin I < 0.015 NT-Pro-B Natriuret Pep 319 Total Protein 7.2 Albumin 3.7 Globulin 3.5 Albumin/Globulin Ratio 1.1 COVID-19 Eval Order Covid19 at [facility] SARS-CoV-2 (PCR) 11/27/20 11/27/20 11/27/20 20:17 20:22 20:22 WBC RBC Hgb Hct MCV MCH MCHC RDW Std Deviation RDW Coeff of James Plt Count MPV Immature Gran % (Auto) Neut % (Auto) Lymph % (Auto) [place] % (Auto) Eos % (Auto) Baso % (Auto) Neut # (Auto) Lymph # (Auto) [place] # (Auto) Eos # (Auto) Baso # (Auto) Immature Gran # (Auto) PT 9.6 INR 0.9 APTT 22.5 PTT Ratio 0.9 VBG pH 7.51 H VBG pCO2 40 VBG pO2 37 VBG HCO3 31 VBG O2 Saturation 71.9 VBG Base Excess 7.8 Barometric Pressure 738.0 Sodium Potassium Chloride Carbon Dioxide Anion Gap BUN Creatinine Est Cr Clr Drug Dosing Est GFR ( Amer) Est GFR (Non-Af Amer) BUN/Creatinine Ratio Glucose Calcium Magnesium Total Bilirubin AST ALT Alkaline Phosphatase Troponin I NT-Pro-B Natriuret Pep Total Protein Albumin Globulin Albumin/Globulin Ratio COVID-19 Eval Order SARS-CoV-2 (PCR) NEGATIVE 11/28/20 11/28/20 11/28/20 06:14 06:14 06:14 WBC 10.17 RBC 4.37 Hgb 12.9 Hct 38.3 MCV 87.6 MCH 29.5 MCHC 33.7 RDW Std Deviation 48.3 H RDW Coeff of James 14.9 H Plt Count 338 MPV 9.9 Immature Gran % (Auto) 0.2 Neut % (Auto) 94.2 Lymph % (Auto) 4.8 [place] % (Auto) 0.7 Eos % (Auto) 0.0 Baso % (Auto) 0.1 Neut # (Auto) 9.58 H Lymph # (Auto) 0.49 L [place] # (Auto) 0.07 L Eos # (Auto) 0.00 Baso # (Auto) 0.01 Immature Gran # (Auto) 0.02 PT 9.8 INR 1.0 APTT 25.2 PTT Ratio 1.0 VBG pH VBG pCO2 VBG pO2 VBG HCO3 VBG O2 Saturation VBG Base Excess Barometric Pressure Sodium 142 Potassium 3.9 Chloride 110 H Carbon Dioxide 24 Anion Gap 8.0 BUN 7 Creatinine 0.54 L Est Cr Clr Drug Dosing 155.9 Est GFR ( Amer) 125.7 Est GFR (Non-Af Amer) 108.5 BUN/Creatinine Ratio 12.3 Glucose 144 H Calcium 8.7 Magnesium 2.2 Total Bilirubin 0.5 AST 8 L ALT 20 Alkaline Phosphatase 56 Troponin I NT-Pro-B Natriuret Pep Total Protein 6.9 Albumin 3.4 Globulin 3.5 Albumin/Globulin Ratio 1.0 COVID-19 Eval Order SARS-CoV-2 (PCR) PG Care Time/CCT Total # of Minutes Spent Total Time Spent with Patient: Total time spent is greater than 50% in coordination of care (as documented) at patient's floor/unit and/or counseling patient: Coding Level of Care Code 07816 Subseq Hosp Care Lvl 2 Diagnoses Acute exacerbation of chronic obstructive airways disease J44.1 Tobacco use disorder F17.200 Lymphedema I89.0
[2020-11-29 06:45] LABS: Hematocrit (blood only) 37.3 % (37-47); Hemoglobin 12.4 g/dL (12.0-16.0); Immature Granulocytes # (auto) 0.07 K/uL (0.00-0.02); Immature Granulocytes % (auto) 0.4 %; Lymphocytes # (auto) 1.03 K/uL (1.2-3.4); Lymphocytes % (auto) 5.6 %; Mean Corpuscular Hemoglobin 28.7 pg (25-34); Mean Corpuscular Hgb Conc 33.2 g/dL (32-36); Mean Corpuscular Volume 86.3 fL (80-100); Mean Platelet Volume 9.7 fL (7.4-10.4); Monocytes # (auto) 0.72 K/uL (0.11-0.59); Monocytes % (auto) 3.9 %; Neutrophils # (auto) 16.49 K/uL (1.4-6.5); Neutrophils % (auto) 90.1 %; Platelet Count 322 K/uL (130-400); RDW Coefficient of Variation 15.1 % (11.5-14.5); RDW Standard Deviation 48.2 fL (36.4-46.3); Red Blood Count 4.32 M/uL (4.2-5.4); White Blood Count 18.31 K/uL (4.8-10.8)
[2020-11-29 07:13] LABS: Albumin Level 3.3 gm/dl (3.4-5.0); BUN Creatinine Ratio 22.9 (10-20); Calcium 8.6 mg/dl (8.5-10.1); Creatinine Clr Calc Pharmacy 145.2 ml/min; Est GFR (African American) 122.8 ml/min; Magnesium 2.7 mg/dl (1.8-2.4); Potassium 4.2 mmol/L (3.5-5.1)
[2020-11-29 07:16] LABS: Bilirubin,Total 0.3 mg/dl (0.2-1); Globulin 3.3 gm/dl (2.5-4.0); Total Protein 6.6 gm/dl (6.4-8.2)
[2020-11-29] MEDS: ALBUT/IPRATROP 3MG/0.5MG NEB 3 ML VIAL NEB SCH ×2 (07:20→10:58)
[2020-11-29] MEDS: guaiFENesin 600 MG TABCR PO SCH (08:22)
[2020-11-29] MEDS: ENOXAPARIN INJ 40 MG/0.4 ML SYR SQ SCH (08:23)
[2020-11-29] MEDS ORDERED: AZITHROMYCIN 250 MG TAB PO SCH (09:00)
[2020-11-29] MEDS ORDERED: predniSONE 50 MG TAB PO SCH (09:00)
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
== END 2020-11-29 14:51 | disposition home or self-care (01) | DRG 191 ==
LOC: ED 18:02 → SUATTDRO 23:19 → 2N 23:19